=== PATIENT | female | born 1945 | race Caucasian/White ===

== ENCOUNTER 2019-06-07 09:29 | Observation (INO) ==
--- NOTE | 2019-06-07 11:03 | Diag Imaging Result Doc PS360 ---
CHEST-PORTABLE - 06/07/2019 INDICATION: cp COMPARISON: 03/14/2019 FINDINGS: Lung volumes are low. There is a stable granuloma in the left upper lobe. The lungs are clear. Heart size is normal. No pneumothorax or pleural effusion. IMPRESSION: No acute disease. Electronically signed by Uli Calhoun 06/07/2019 11:01 AM
[2019-06-07 11:16] LABS: BASO# 0.03 X1000 (0.0-0.2); BASO% 0.2 % (0.0-0.8); EOS# 0.02 X1000 (0.0-0.7); EOS% 0.1 % (0.0-10.0); HEMATOCRIT 41.7 % (37.0-47.0); HEMOGLOBIN 13.7 g/dL (12.0-16.0); IMM GRAN# 0.03 X1000 (0.0-0.04); IMM GRAN% 0.2 % (0.0-0.5); LYMPH# 1.99 X1000 (1.2-3.4); LYMPH% 14.6 % (20.5-51.1); MCH 27.6 PG (27-31); MCHC 32.9 g/dL (33-37); MCV 83.9 FL (81-99); MONO# 0.61 X1000 (0.11-0.59); MONO% 4.5 % (1.7-9.3); MPV 9.3 FL (7.4-10.4); NEUT# 10.92 X1000 (1.4-6.5); NEUT% 80.4 % (42.2-75.2); PLT 264 X1000 (130-400); RBC 4.97 XMIL (4.2-5.4); RDW 13.4 % (11.5-14.5)
[2019-06-07 11:22] LABS: INR 1.08; PROTIME 14.2 Seconds (11.0-16.0)
[2019-06-07] MEDS ORDERED: ATIVAN PO PRN (11:30)
[2019-06-07 11:37] LABS: AMYLASE 37 U/L (20-200); LIPASE 32 U/L (13-60)
[2019-06-07 11:45] LABS: ALB/GLOB RATIO 1.2; ALBUMIN 4.2 g/dL (3.5-5.0); CALCIUM 9.1 mg/dL (8.8-10.2); MAGNESIUM 1.9 mg/dL (1.5-2.7); POTASSIUM 4.1 mmol/L (3.5-5.1); TOTAL BILIRUBIN 0.33 mg/dL (0.20-1.00); TOTAL PROTEIN 7.6 g/dL (6.3-8.3)
[2019-06-07] MEDS ORDERED: D50W SYRINGE IV PRN (11:45)
--- NOTE | 2019-06-07 12:05 | EKG Report ---
Test Performed on : 06/07/2019 11:05:59 AM Test Reason : cp Blood Pressure : / mmHG Vent. Rate : 087 BPM Atrial Rate : 087 BPM P-R Int : 202 ms QRS Dur : 104 ms QT Int : 416 ms P-R-T Axes : 069 057 075 degrees QTc Int : 500 ms Sinus rhythm. with occasional premature ventricular complexes. Inferior infarct (cited on or before 06-MAR-2015) Cannot rule out Anterior infarct (cited on or before 14-MAR-2019) Abnormal ECG When compared with ECG of 18-MAR-2019 09:31, premature ventricular complexes. are now present Vent. rate has increased BY 31 BPM QRS duration has increased T wave inversion no longer evident in Lateral leads QT has lengthened Confirmed by Maame WATKINS, Juan ([id number]) on 06/08/2019 8:49:18 AM
[2019-06-07 12:18] LABS: HEMOGLOBIN A1C 8.2 % (4.8-6.0)
[2019-06-07] MEDS ORDERED: SITAGLIPTIN PHOS PO SCH (13:00)
[2019-06-07] MEDS ORDERED: LANTUS INSULIN SUBQ SCH (13:00)
[2019-06-07] MEDS ORDERED: METFORMIN HCL PO SCH (13:00)
[2019-06-07] MEDS ORDERED: HUMALOG SUBQ SCH (16:00)
--- NOTE | 2019-06-07 16:32 | ECHO REPORT ---
ORDER DATE: 06/07/2019 INDICATION: Palpitations evaluate possible PFO. FINDINGS: 1. Right atrium appears normal in size at 2.1 cm. On some views, there is a suggestion of a hypermobile intraatrial septum suggestive of intraatrial septal aneurysm. On injection of agitated saline contrast with Valsalva there does not appear to be any significant right-to- left shunting. 2. Mild tricuspid regurgitation. Insufficient data to estimate RV systolic pressure. 3. Normal RV size and systolic function. 4. Trace pulmonic insufficiency. 5. Normal left atrial size at 3.7 cm. 6. There is no clear evidence of mitral valve prolapse. There was mild mitral regurgitation. 7. Normal LV size, end-diastolic dimension of 4 cm. Mild left ventricular hypertrophy with a posterior and interventricular septal wall thickness 1.3 cm each. Normal LV systolic function. Estimated ejection fraction of 65%. 8. Aortic valve opens well. No evidence of stenosis or insufficiency. 9. Aorta appears normal in visualized segments. 10. No pericardial effusion was identified. cc: MD Aster Yoo PA Bharat K. Vakharia, MD
[2019-06-07] MEDS: ALDACTONE PO SCH (16:49)
[2019-06-07] MEDS: GLUCOPHAGE PO SCH (16:50)
[2019-06-07] MEDS: JANUVIA PO SCH (16:50)
[2019-06-07] MEDS: PRINIVIL PO SCH ×2 (16:52→20:37)
[2019-06-07] MEDS: LEXAPRO PO SCH (16:52)
[2019-06-07] MEDS: THYROID PO SCH (16:52)
[2019-06-07] MEDS: ADALAT CC PO SCH (18:13)
[2019-06-07] MEDS: HUMALOG SUBQ SCH ×2 (19:33→20:38)
[2019-06-07] MEDS: ASPIRIN EC PO SCH (19:38)
[2019-06-07] MEDS: LOVENOX SUBQ SCH (19:38)
--- NOTE | 2019-06-07 20:26 | CONSULTATION ---
DATE OF CONSULTATION: 06/07/2019 IMPRESSION: 1. Recent chest discomfort with some palpitations. Overall presentation atypical for myocardial ischemia. Nonetheless patient does have significant risk factors for coronary atherosclerosis. 2. Hypertension. 3. Type 2 diabetes mellitus requiring insulin for control. 4. Hyperlipidemia. 5. Gastroesophageal reflux disease. 6. Depression. RECOMMENDATIONS: 1. Telemetry observation. 2. Follow up cardiac enzymes. 3. Echocardiography with saline contrast study (patient reportedly had atrial septal aneurysm in the past). 4. Rest sestamibi study today with plans for stress sestamibi study tomorrow. HISTORY: This 73-year-old white female with past history of hypertension, type 2 diabetes mellitus requiring insulin for control, hyperlipidemia, gastroesophageal reflux disease was admitted on referral from Dr. Garces's office for evaluation of chest symptoms. She relates that yesterday evening after eating beef stew she started having some discomfort in her chest which she characterizes rather vaguely. She relates that she has trouble belching and took some [place]. She relates some partial improvement in her symptoms. Nevertheless she continued to have discomfort through the night as well as some associated palpitations. She saw Dr. Garces today and was referred to the emergency room for admission and further evaluation. She does have history gastroesophageal reflux disease. She relates some chronic tendency for exertional shortness of breath such as when climbing stairs. She may occasionally have some chest discomfort with physical activity which she again characterizes vaguely. She had previous evaluation for chest symptoms back in 2014 with negative Lexiscan myocardial perfusion imaging and normal echocardiography. Echocardiography did reveal a very prominent interatrial septal aneurysm. PAST MEDICAL HISTORY: 1. Hypertension. 2. Type 2 diabetes mellitus requiring insulin for control. 3. Hyperlipidemia. 4. Atrial septal aneurysm. 5. Peripheral vascular disease with reported history of subclavian stenosis. 6. Hypothyroidism. 7. Depression. PAST SURGICAL HISTORY: Includes unspecified thyroid surgery. SOCIAL HISTORY: She is and lives with her . She does not smoke or use alcohol. FAMILY HISTORY: Negative for premature coronary disease. REVIEW OF SYSTEMS: Pulmonary: Noncontributory beyond history of present illness. Gastrointestinal: Negative for melena or bright red blood per rectum. She had cholecystectomy last year. Constitutional: Negative. Remainder review of systems negative/noncontributory with 14 total systems reviewed. PHYSICAL EXAMINATION: General: This is a obese older white female in no distress. Vital signs: Blood pressure 140/70, heart rate 60. HEENT: Extraocular movements intact. Mucous membranes moist. Neck: Supple without jugular venous distention. There are no carotid bruits. Chest: Clear to auscultation bilaterally. Cardiac Exam: Reveals a regular rate and rhythm without appreciable murmur or gallop. Abdomen: Soft. Bowel sounds normal. Extremities: Without edema. Neurologic: Reveals her to be alert and fully oriented. Speech is fluent. She moves all 4 extremities equally well. Skin: Warm, dry. Psychiatric: Reveals mood to be appropriate. DATA: A 12 lead EKG demonstrates sinus rhythm with occasional premature ventricular complex, nondiagnostic inferior Q-waves and delayed precordial R-wave transition, cannot exclude previous anterior infarct. LABORATORY DATA: Includes white blood cell count 13.6, hematocrit 41.7, hemoglobin 13.7, platelet count 264,000. Sodium 137, potassium 4.1, chloride 99, carbon dioxide 23, BUN 22, creatinine 1.0. Troponin T less than 0.01. CPK 112. Magnesium 1.9. TSH 9.82, free T4 0.96. cc: MD Jorge Jonas MD
[2019-06-07] MEDS: COREG PO SCH (20:37)
[2019-06-07] MEDS ORDERED: LYRICA PO SCH (21:00)
[2019-06-07] MEDS ORDERED: LIPITOR PO SCH (21:00)
--- NOTE | 2019-06-07 22:23 | HISTORY AND PHYSICAL ---
CHIEF COMPLAINT: Chest discomfort. HISTORY OF PRESENT ILLNESS: Ms Cuellar is a 73-year-old white female patient admitted with chest discomfort. The patient claims she was not feeling well last night. She had chest discomfort and was also having some palpitations. The patient claims she was not able to rest well last night. She was restless. At times she had chest pain going to her left arm. The patient also has some shortness of breath. No sweating. The patient was complaining of flushing. The patient came to the office this morning. Her systolic blood pressure was around 200. I evaluated the patient. She does have multiple risk factors including hypertension, hyperlipidemia, diabetes, and menopause. I decided to admit the patient for observation and further workup. The patient was in agreement. The patient does have a history of epigastric discomfort and heartburn. The patient is on Protonix. She claims compliance. No dysphagia or odynophagia. The patient does have mild tickling in the throat causing cough. No hematemesis or melena. No diarrhea, blood, or mucus in the stool. No recent weight loss or weight gain. The patient's blood pressure does fluctuate. Claims to be under stress. No dysuria or hematuria. No focal numbness, tingling, weakness. No further history available at this time. ALLERGIES: No known drug allergies. MEDICATIONS: Include Lipitor, Coreg, Lexapro, Lantus insulin, lisinopril, Humalog, Glucophage, nifedipine, Prilosec, Lyrica, Januvia, Aldactone and [place] Thyroid. PAST MEDICAL HISTORY: Hypertension, hyperlipidemia, longstanding diabetes, hypothyroidism, gastritis and reflux disease, osteoarthritis, situational depression, osteoarthritis, peripheral neuropathy. PERSONAL HISTORY: . Lives with . Nonsmoker. Denies alcohol or substance abuse. FAMILY HISTORY: Significant for diabetes, hypertension and hyperlipidemia. REVIEW OF SYSTEMS: As per HPI. PHYSICAL EXAMINATION: GENERAL: Elderly white female patient in mild distress. VITAL SIGNS: On admission, blood pressure was 171/72, pulse 77, respirations 19, temperature 97.6. SKIN: Normal turgor. No rash or petechiae. HEAD: Atraumatic, normocephalic. [place] conjunctivae. Anicteric sclerae. Extraocular muscle movement normal. Fundi cannot be penetrated. Good oral hygiene. No tonsillopharyngeal congestion or exudate. Ears and nose benign. NECK: Supple. No JVD, thyromegaly or lymphadenopathy. CHEST: Bilateral good air entry present. Bibasilar crepitation. No rales. CARDIOVASCULAR: S1 and S2 heard, 2/6 systolic murmur at the apex. ABDOMEN: Soft, globular. Bowel sounds present. EXTREMITIES: No cyanosis, clubbing. No acute DVT. PAINT BRUSH MAKER: Alert, awake able to move all 4 limbs. Minimal swelling in the legs. LABORATORY DATA: Revealed mild leukocytosis, hemoglobin 13.7, hematocrit 41.7. Platelet count 264. PT and PTT were normal. Electrolytes results were reviewed. Her magnesium was 1.9. TSH 9.82, free T4 of 0.96. PROBLEM LIST: Includes chest pain/discomfort with multiple risk factors, diabetes mellitus, poorly controlled, hyperlipidemia, hypothyroidism, gastritis and reflux disease, peripheral neuropathy. PLAN: Admit the patient. Telemetry monitoring, oxygen, check appropriate labs. Cardiology consult, echocardiogram and EKG results review. Consider stress test. I gave her Ativan for her anxiety. After reviewing stress test and hospital course, will make further recommendations. Overall plan discussed at length with the patient and family, and they are in agreement. cc: Jorge Garces MD
[2019-06-08 06:07] LABS: CALCIUM 8.8 mg/dL (8.8-10.2); CREATININE 1.2 mg/dL (0.5-0.9); MAGNESIUM 2.1 mg/dL (1.5-2.7); POTASSIUM 3.9 mmol/L (3.5-5.1)
[2019-06-08] MEDS: HUMALOG SUBQ SCH ×3 (06:42→16:16)
[2019-06-08] MEDS ORDERED: PRILOSEC PO SCH (07:00)
--- NOTE | 2019-06-08 08:09 | EKG Report ---
Test Performed on : 06/08/2019 06:10:28 AM Test Reason : palpitations Blood Pressure : / mmHG Vent. Rate : 061 BPM Atrial Rate : 061 BPM P-R Int : 228 ms QRS Dur : 092 ms QT Int : 474 ms P-R-T Axes : 051 -15 094 degrees QTc Int : 477 ms Sinus rhythm. with 1st degree AV block. Inferior infarct , age undetermined Anterior infarct , age undetermined T wave abnormality, consider lateral ischemia Abnormal ECG Confirmed by Maame WATKINS, Juan ([id number]) on 06/08/2019 8:52:37 AM
[2019-06-08] MEDS ORDERED: LEXISCAN ONE (08:32)
[2019-06-08 10:01] LABS: BILIRUBIN URINE NEGATIVE (NEGATIVE); BLOOD URINE NEGATIVE (NEGATIVE); COLOR STRAW; GLUCOSE URINE NEGATIVE (NEGATIVE); KETONE URINE NEGATIVE (NEGATIVE); LEUKOCYTES URINE TRACE (NEGATIVE); NITRITE URINE NEGATIVE (NEGATIVE); PH URINE 6.5; PROTEIN URINE 30 mg/dL (NEGATIVE); TURBIDITY URINE CLEAR (CLEAR); URINE SOURCE CLEAN CATCH; UROBILINOGEN URINE NORMAL (NORMAL)
[2019-06-08 10:02] LABS: UR EPITHELIAL CELLS <10 /HPF (<10); URINE BACTERIA NEGATIVE /HPF; URINE RBC <10 /HPF (<10); URINE WBC <10 /HPF (<10)
[2019-06-08] MEDS: GLUCOPHAGE PO SCH (11:08)
[2019-06-08] MEDS: JANUVIA PO SCH (11:08)
[2019-06-08] MEDS: ADALAT CC PO SCH (11:13)
[2019-06-08] MEDS: THYROID PO SCH (11:13)
[2019-06-08] MEDS: PRINIVIL PO SCH (11:14)
[2019-06-08] MEDS: ASPIRIN EC PO SCH (11:14)
[2019-06-08] MEDS: ALDACTONE PO SCH (11:14)
[2019-06-08] MEDS: LEXAPRO PO SCH (11:14)
[2019-06-08] MEDS: COREG PO SCH (11:14)
--- NOTE | 2019-06-08 11:54 | PROGRESS NOTE ---
DATE: 06/08/2019 SUBJECTIVE: Ms. Cuellar is a 73-year-old, white female patient admitted with chest discomfort and restlessness. The patient is doing better. She denied any chest pain. The patient was able to rest well last night. Evaluated by mail clerk; recommendation noted. The patient is scheduled to have a stress test today. She denied any nausea or vomiting. No fever or chills. OBJECTIVE: Vital Signs: Her vital signs noted. Blood pressure much better. Neck: Neck is supple. No JVD. Lungs: Bilateral good air entry present. CVS: S1 and S2 heard. Abdomen: Soft, nontender. Bowel sounds present. INDUSTRIAL CONTROLS TECHNICIAN: Alert, awake, able to move all 4 limbs. CONSIDERATION: 1. Chest pain. Cardiac isoenzymes negative. The patient is scheduled to have stress test today. 2. Diabetes mellitus. I am going to hold her Humalog. Also we are going to hold her Lantus today as she is n.p.o. Continue sliding scale insulin. 3. Hypertension, doing better. 4. Hypothyroidism. 5. Anxiety. Continue the rest of the treatment. Close observation. Overall plan discussed with the patient. I think there is some element of anxiety. If stress test is negative, I am planning to discharge patient home this evening. cc: Jorge Garces MD
[2019-06-08 13:04] VITALS: BP 119/72
--- NOTE | 2019-06-08 15:13 | Diag Imaging Result Document ---
PROCEDURE NAME: MYOCARDIAL PERF SCAN, STR/REST - 06/08/2019 PROCEDURE: Lexiscan sestamibi. SUMMARY: The patient administered 13.9 mCi of technetium-99m sestamibi, after which resting cardiac images were obtained. The patient was subsequently administered Lexiscan 0.4 mg intravenously, after which the heart rate went from 59 beats per minute to 83 beats per minute. The blood pressure went from 171/87 to 148/68. With Lexiscan, the patient denied chest discomfort. Following the administration of Lexiscan, the patient was administered 37.3 mCi of technetium 99-m sestamibi, after which gated stress cardiac images were obtained. Baseline ECG demonstrates sinus bradycardia, nonspecific interventricular conduction delay and delayed precordial R-wave progression. With Lexiscan, there were no diagnostic ST-segment changes. SPECT images were reconstructed in the short, horizontal, and vertical axis. Review of these images demonstrated a small area of mild to moderate diminished activity in the apex of the left ventricle. Stress images appear similar on resting images. No significant reversibility is evident. Gated images demonstrate a calculated left ejection fraction of 81% with symmetrical wall motion/thickening. CONCLUSIONS: 1. Adequate response to Lexiscan. 2. Clinically negative for chest pain. 3. Electrocardiographically negative for Lexiscan-induced myocardial ischemia. 4. Lexiscan sestamibi images demonstrate small fixed area of mild to moderate diminished activity in the anteroapical region with corresponding preserved regional wall motion most consistent with soft tissue/breast attenuation artifact. There is no convincing scintigraphic evidence of inducible myocardial ischemia. Normal left ventricular systolic function demonstrated. cc: MD Aster Jonas PA
[2019-06-08] MEDS: LOVENOX SUBQ SCH (16:57)
--- NOTE | 2019-06-09 07:20 | PROGRESS NOTE ---
DATE: 06/08/2019 SUBJECTIVE: Patient continues without further chest discomfort or shortness of breath on room air. OBJECTIVE: Vital signs: Blood pressure 119/72, heart rate 62, oxygen saturation 95% on room air. There is no significant jugular venous distention. Chest: Clear to auscultation bilaterally. Cardiac: Reveals a regular rate and rhythm without appreciable murmur or gallop. There is no evidence of peripheral edema. LABORATORY DATA AND DIAGNOSTICS: Includes a sodium 137, potassium 3.9, chloride 100, carbon dioxide 25, BUN 24, creatinine 1.2, glucose 94. Initial troponin less than 0.01 with followup troponins of less than 0.01 and less than 0.01. Lexiscan sestamibi study demonstrates no evidence of inducible myocardial ischemia and indicates normal left ventricular ejection fraction. IMPRESSION: 1. Recent chest symptoms with some associated palpitations. Chest symptoms atypical for myocardial ischemia. No evidence of myocardial insult and Lexiscan sestamibi study negative for evidence of inducible myocardial ischemia. Suspect chest symptoms more likely noncardiac. Patient appears clinically stable from a cardiovascular standpoint. 2. Hypertension. 3. Type 2 diabetes mellitus requiring insulin for control. 4. Hyperlipidemia. 5. Gastroesophageal reflux disease. 6. Depression. RECOMMENDATIONS: 1. Reasonable for patient to be discharged to home. 2. Continue current cardiovascular regimen unchanged. 3. I will plan on seeing the patient further on an as-needed basis. cc: MD Jorge Jonas MD
== END 2019-06-08 17:19 | disposition home or self-care (01) ==
LOC: DIRADM → EDIPHOLD 09:29 → 1N 14:54
PROVIDERS: ADMIT Internal Medicine; ATTEND Internal Medicine